=== PATIENT | male | born 1960 ===

== ENCOUNTER 2016-03-18 16:14 | Emergency (ER) | payer OTHER ==
[2016-03-18 16:36] VITALS: TEMP 98.2
[2016-03-18] MEDS ORDERED: KETOROLAC TROMETHAMINE 30 MG/ML SOL IM ONE (17:08)
[2016-03-18] MEDS ORDERED: KETOROLAC TROMETHAMINE 30 MG/ML SOL ONE (17:10)
[2016-03-18 17:34] VITALS: BP 110/74; PULSE 64; RESP 20; O2SAT 100
== END 2016-03-18 17:32 | disposition home or self-care (01) ==
LOC: ED 16:14
DX: M25.511 Pain in right shoulder (principal); R20.9 Unspecified disturbances of skin sensation
CPT/HCPCS: 99282 ×2; J1885; 96372